=== PATIENT | female | born 1950 | race Caucasian/White ===

== ENCOUNTER 2018-03-02 10:35 | Outpatient (CLI) | payer MEDICARE, BC ==
[~2018-03-02 10:35] MED LIST: CELE200C PO; CHOL50004 PO; DULA0.75 INJ; DULO-31 PO; EZET10TA14 PO; FLUT1DIS4 INH; IVIG INJ; OMEP40CA37 PO; ROSU40TA PO; VALA500T PO
[2018-03-02 11:26] LABS: BASOPHILS % (AUTO) 0.4 % (0-1); EOSINOPHILS # (AUTO) 0.1 X10'3 (0-0.9); EOSINOPHILS % (AUTO) 2.3 % (0-6); HEMATOCRIT 42.3 % (35.0-45.0); HEMOGLOBIN 14.1 g/dl (12.0-16.0); LYMPHOCYTES % (AUTO) 21.1 % (21-51); MEAN CORPUSCULAR HEMOGLOBIN 28.5 PG (27.0-31.0); MEAN CORPUSCULAR HGB CONC 33.3 % (33.0-36.5); MEAN CORPUSCULAR VOLUME 85.7 FL (78-98); MEAN PLATELET VOLUME 10.9 FL (7.4-10.4); MONOCYTES # (AUTO) 0.3 X10'3 (0-0.9); MONOCYTES % (AUTO) 6.9 % (2-12); NEUTROPHILS # (AUTO) 3.4 X10'3 (1.8-7.7); NEUTROPHILS % (AUTO) 69.3 % (42-75); PLATELET COUNT 176 X10'3 (140-440); RED BLOOD COUNT 4.94 X10'6 (4.20-5.60); RED CELL DISTRIBUTION WIDTH 14.3 % (11.5-14.5); WHITE BLOOD COUNT 4.9 X10'3 (4.5-11.0)
[2018-03-02 11:35] LABS: PROTHROMBIN TIME 10.6 SECONDS (9.0-12.0)
[2018-03-02 11:41] LABS: ALANINE AMINOTRANSFERASE 61 U/L (12-78); ALBUMIN 3.9 G/DL (3.4-5.0); ALKALINE PHOSPHATASE 42 IU/L (46-116); ANION GAP 11 (8-16); ASPARTATE AMINO TRANSFERASE 36 U/L (10-37); BILIRUBIN,TOTAL 0.4 MG/DL (0.1-1.0); BLOOD UREA NITROGEN 13 MG/DL (7-18); BUN/CREATININE RATIO 14.3 (6.6-38.0); CALCIUM 9.5 MG/DL (8.5-10.1); CHLORIDE 101 MMOL/L (99-107); CREATININE 0.91 MG/DL (0.40-0.90); GLUCOSE 260 MG/DL (70-104); SODIUM 140 MMOL/L (135-145); TOTAL CARBON DIOXIDE 28.4 MMOL/L (24-32); TOTAL PROTEIN 7.7 G/DL (6.4-8.2); eGFR 62 ML/MIN
[2018-03-02 11:43] LABS: C-REACTIVE PROTEIN < 0.05 MG/DL (0.0-0.5)
[2018-03-02 11:48] LABS: HEMOGLOBIN A1C 8.3 % (4.5-6.2)
[2018-03-02 13:32] LABS: CLARITY,URINE CLOUDY (Clear); COLOR,URINE YELLOW (Yellow); GLUCOSE, URINE >=1000 mg/dl (Neg); KETONES,URINE NEGATIVE (Neg); LEUKOCYTE ESTERASE ,URINE TRACE (Neg); NITRITES, URINE NEGATIVE (Neg); OCCULT BLOOD,URINE SMALL (Neg); PROTEIN,URINE NEGATIVE (Neg); UROBILINOGEN,URINE 0.2 E.U/dL (0.2-1.0)
[2018-03-02 13:35] LABS: UA COLLECTION TYPE NON-SPECIFIED
[2018-03-02 13:37] LABS: WBC,URINE TNTC /HPF (0-4)
[2018-03-02 13:38] LABS: BACTERIA,URINE 3+ /HPF (Neg); MUCUS STRANDS FEW /LPF (Neg); SQUAMOUS EPITHELIAL CELL,UR MODERATE /LPF (FEW)
== END 2018-03-02 23:59 | disposition home or self-care (01) ==
LOC: LAB 10:35
PROVIDERS: ATTEND Specialist
DX: Z01.818 Encounter for other preprocedural examination (principal); Z51.81 Encounter for therapeutic drug level monitoring; N39.0 Urinary tract infection, site not specified; T84.53XA Infection and inflammatory reaction due to internal right knee prosthesis, initial encounter; E11.8 Type 2 diabetes mellitus with unspecified complications; I10 Essential (primary) hypertension; Z79.899 Other long term (current) drug therapy; Z96.642 Presence of left artificial hip joint; Z96.651 Presence of right artificial knee joint; Z87.891 Personal history of nicotine dependence
CPT/HCPCS: 36415; 80053; 81001; 83036; 85025; 85610; 85651; 86140; 87070

== ENCOUNTER 2018-03-15 07:41 | Inpatient (IN) | payer MEDICARE, BC ==
[2018-03-11 12:12] LABS: CLARITY,URINE CLOUDY (Clear); COLOR,URINE YELLOW (Yellow); GLUCOSE, URINE NEGATIVE (Neg); KETONES,URINE TRACE mg/dl (Neg); LEUKOCYTE ESTERASE ,URINE NEGATIVE (Neg); NITRITES, URINE NEGATIVE (Neg); OCCULT BLOOD,URINE NEGATIVE (Neg); PROTEIN,URINE NEGATIVE (Neg); UROBILINOGEN,URINE 0.2 E.U/dL (0.2-1.0)
[2018-03-11 12:21] LABS: UA COLLECTION TYPE NON-SPECIFIED
[2018-03-11 12:22] LABS: MUCUS STRANDS MODERATE /LPF (Neg); SQUAMOUS EPITHELIAL CELL,UR MODERATE /LPF (FEW)
[2018-03-11 12:23] LABS: BACTERIA,URINE FEW /HPF (Neg); RBC,URINE 0-2 /HPF (0-2); WBC,URINE 0-4 /HPF (0-4); YEAST MODERATE /HPF (NEGATIVE)
[~2018-03-15] VITALS: Ht 160 cm; Wt 103.9 kg
[2018-03-15] VITALS (17 sets, daily range): BP systolic 113–152; BP diastolic 59–119
[~2018-03-15 07:41] MED LIST changes: -CELE200C PO; -CHOL50004 PO; +Cefazolin 2GM/50ML dext iso,osmotic IVPB IV ONE; +DOCUMENT DATE & TIME OF BETA-BLOCKER PO ONE; +HYDR12.5 PO; +LEVA15HF4 INH; +LOSA25TA96 PO; +METO-395 PO; +OMEP20CA10 PO; -OMEP40CA37 PO; +ROSU20TA PO; -ROSU40TA PO; +TRAZ-219 PO; +albuterol 2.5 MG/3 ML nebule NEB ONE; +celeCOXIB 100mg capsule PO ONE; +famotidine 20mg tablet PO ONE; +gabapentin 300mg capsule PO ONE; +ringers solution, lacted 1,000 ML IV SCH; +tranexamic acid inj. 1,000 MG in normal saline 100ml IV soln 90 ML IV ONE; +vancomycin inj 1,500 MG in normal saline 300ml IV soln IV ONE
[2018-03-15] MEDS ORDERED: APIX5TAB3 PO (07:46)
[2018-03-15] MEDS ORDERED: meperidine/PF 25mg/ml syringe IV PRN ×3 (08:55)
[2018-03-15] MEDS ORDERED: proCHLORperazine 10 MG/2 ml inj IV PRN (08:55)
[2018-03-15] MEDS ORDERED: ringers solution, lacted 1,000 ML IV SCH (08:55)
[2018-03-15] MEDS ORDERED: ondansetron/PF 4mg/2ml inj IV PRN ×2 (08:55→12:10)
[2018-03-15] MEDS ORDERED: bacitracin inj 150,000 UNIT in sodium chloride irrig. sol 3,000 ML IR ONE (09:00)
[2018-03-15] MEDS ORDERED: ROPIVAcaine 0.5% (5mg/ml) 30ml vial ONE (09:17)
[2018-03-15] MEDS ORDERED: MIDAZolam 1mg/ml 10ml vial ONE (09:38)
[2018-03-15] MEDS ORDERED: fentaNYL/PF 50MCG/1 ML 2ML syringe ONE (09:39)
[2018-03-15] MEDS ORDERED: cloNIDine hcl/PF 100mcg/ml inj ONE (11:00)
[2018-03-15] MEDS: potassium cl 20mEq in 1/2 NS 1,000 ML IV SCH ×2 (12:09→17:38)
[2018-03-15] MEDS ORDERED: dextrose 50%-water 50ml dispensing syringe IV PRN ×2 (12:10)
[2018-03-15] MEDS ORDERED: dextrose ORAL solution 15 GM/59 ML bottle PO PRN ×2 (12:10)
[2018-03-15] MEDS ORDERED: MESSAGE TO PHARMACY PO ONE (12:10)
[2018-03-15] MEDS ORDERED: bisacodyl 10mg suppository rectal RC PRN (12:10)
[2018-03-15] MEDS ORDERED: diphenhydrAMINE 25mg capsule PO PRN (12:10)
[2018-03-15] MEDS ORDERED: acetaminophen 325mg tablet PO PRN (12:10)
[2018-03-15] MEDS ORDERED: traMADol 50MG tablet PO PRN (12:10)
[2018-03-15] MEDS ORDERED: glucagon, human recombinant 1mg kit SUBCUT PRN (12:10)
[2018-03-15] MEDS ORDERED: magnesium hydroxide 30ml (MOM) UD suspension PO PRN (12:10)
[2018-03-15] MEDS ORDERED: albuterol 2.5 MG/3 ML nebule NEB PRN (12:45)
[2018-03-15] MEDS: albuterol 2.5 MG/3 ML nebule NEB SCH ×2 (14:34→20:39)
[2018-03-15] MEDS: ceFAZolin 1GM/D5W- ADD-VANTAGE 50 ML IV SCH (17:37)
[2018-03-15] MEDS ORDERED: celeCOXIB 100mg capsule PO ONE ×2 (17:50→18:40)
[2018-03-15] MEDS: traMADol 50MG tablet PO PRN (18:43)
[2018-03-15] MEDS ORDERED: vancomycin/NS 1 GM ADD-VANTAGE 250 ML IV SCH (20:00)
[2018-03-15] MEDS ORDERED: non-formulary drug (Fluticasone/Salmeterol (Advair 250-50 Diskus) 1 PUFFS) INH SCH (20:00)
[2018-03-15] MEDS: budesonide 0.5mg/2ml UD nebule IH SCH (20:39)
[2018-03-15] MEDS: insulin glargine (Lantus) pen - multi-dose SQ SCH (20:52)
[2018-03-15] MEDS: sennosides 8.6mg tablet PO SCH (20:53)
[2018-03-15] MEDS: ascorbic acid 500mg tablet PO SCH (20:53)
[2018-03-15] MEDS: diphenhydrAMINE 25mg capsule PO PRN (20:54)
[2018-03-15] MEDS: ezetimibe 10mg tablet PO SCH (20:58)
[2018-03-16] MEDS: ceFAZolin 1GM/D5W- ADD-VANTAGE 50 ML IV SCH (00:06)
[2018-03-16] MEDS: traMADol 50MG tablet PO PRN ×4 (00:07→20:08)
[2018-03-16 02:00] VITALS: BP 146/70
[2018-03-16] MEDS: potassium cl 20mEq in 1/2 NS 1,000 ML IV SCH ×4 (04:26→20:11)
[2018-03-16 05:55] LABS: BASOPHILS % (AUTO) 0.2 % (0-1); EOSINOPHILS % (AUTO) 0.5 % (0-6); HEMATOCRIT 40.1 % (35.0-45.0); HEMOGLOBIN 13.5 g/dl (12.0-16.0); LYMPHOCYTES # (AUTO) 1.1 X10'3 (1.1-4.8); LYMPHOCYTES % (AUTO) 11.7 % (21-51); MEAN CORPUSCULAR HEMOGLOBIN 28.8 PG (27.0-31.0); MEAN CORPUSCULAR HGB CONC 33.7 % (33.0-36.5); MEAN CORPUSCULAR VOLUME 85.3 FL (78-98); MEAN PLATELET VOLUME 10.4 FL (7.4-10.4); MONOCYTES # (AUTO) 0.8 X10'3 (0-0.9); MONOCYTES % (AUTO) 8.8 % (2-12); NEUTROPHILS # (AUTO) 7.6 X10'3 (1.8-7.7); NEUTROPHILS % (AUTO) 78.8 % (42-75); PLATELET COUNT 184 X10'3 (140-440); RED CELL DISTRIBUTION WIDTH 14.3 % (11.5-14.5); WHITE BLOOD COUNT 9.6 X10'3 (4.5-11.0)
[2018-03-16 06:00] VITALS: BP 149/75
[2018-03-16 06:03] LABS: INR 1.4 INR; PROTHROMBIN TIME 14.1 SECONDS (9.0-12.0)
[2018-03-16 06:36] LABS: ALANINE AMINOTRANSFERASE 26 U/L (12-78); ALBUMIN/GLOBULIN RATIO 0.7 (1.1-1.5); ALKALINE PHOSPHATASE 48 IU/L (46-116); ANION GAP 8 (8-16); ASPARTATE AMINO TRANSFERASE 19 U/L (10-37); BILIRUBIN,TOTAL 0.3 MG/DL (0.1-1.0); BLOOD UREA NITROGEN 6 MG/DL (7-18); BUN/CREATININE RATIO 7.6 (6.6-38.0); CALCIUM 9.6 MG/DL (8.5-10.1); CHLORIDE 101 MMOL/L (99-107); CREATININE 0.79 MG/DL (0.40-0.90); GLUCOSE 194 MG/DL (70-104); POTASSIUM 4.1 MMOL/L (3.5-5.1); SODIUM 138 MMOL/L (135-145); TOTAL CARBON DIOXIDE 28.9 MMOL/L (24-32); TOTAL PROTEIN 7.1 G/DL (6.4-8.2); eGFR 73 ML/MIN
[2018-03-16] MEDS ORDERED: HYDROmorphone inj. 0.5 MG/0.5 ML DISP.SYRIN IV PRN (06:50)
[2018-03-16] MEDS: albuterol 2.5 MG/3 ML nebule NEB SCH ×4 (07:00→19:00)
[2018-03-16] MEDS: celeCOXIB 100mg capsule PO SCH ×2 (07:14→18:29)
[2018-03-16] MEDS ORDERED: HYDROmorphone 1 mg/ml syringe ONE (07:42)
[2018-03-16] MEDS: losartan 50mg tablet PO SCH (07:47)
[2018-03-16] MEDS: pantoprazole 40mg Tablet.DR PO SCH (07:47)
[2018-03-16] MEDS: HYDROchlorothiazide 12.5mg capsule PO SCH (07:48)
[2018-03-16] MEDS: metoprolol succinate 25mg (24-HOUR) SR. Tablet PO SCH (07:48)
[2018-03-16] MEDS: multivitamins, therapeutics tablet PO SCH (07:48)
[2018-03-16] MEDS: duloxetine 30mg CAPSULE.DR PO SCH (07:48)
[2018-03-16] MEDS: ascorbic acid 500mg tablet PO SCH ×2 (07:48→20:07)
[2018-03-16] MEDS: atorvastatin 10mg tablet PO SCH (07:48)
[2018-03-16] MEDS: HYDROmorphone 1 mg/ml syringe IV PRN ×3 (07:53→22:07)
[2018-03-16] MEDS: budesonide 0.5mg/2ml UD nebule IH SCH ×2 (08:00→20:00)
[2018-03-16] MEDS: insulin Lispro (HumaLOG) vial - multi-dose SQ SCH ×3 (08:26→18:28)
[2018-03-16] MEDS ORDERED: HYDROmorphone 1 mg/ml syringe IV PRN (09:15)
[2018-03-16 10:00] VITALS: BP 138/59
[2018-03-16] MEDS ORDERED: warfarin 5mg tablet PO ONE (10:00)
[2018-03-16] MEDS ORDERED: NUT.TX.GLUC.INTOLER,LAC-FR,SOY (GLUCERNA) 237 ML PO SCH (12:30)
[2018-03-16 14:00] VITALS: BP 118/50
[2018-03-16 18:00] VITALS: BP 131/60
[2018-03-16] MEDS ORDERED: celeCOXIB 100mg capsule PO SCH (20:00)
[2018-03-16] MEDS: ezetimibe 10mg tablet PO SCH (20:07)
[2018-03-16] MEDS: sennosides 8.6mg tablet PO SCH (20:07)
[2018-03-16] MEDS: insulin glargine (Lantus) pen - multi-dose SQ SCH (20:10)
[2018-03-16] MEDS: diphenhydrAMINE 25mg capsule PO PRN (20:11)
[2018-03-17] MEDS: traMADol 50MG tablet PO PRN ×5 (00:36→20:07)
[2018-03-17] MEDS: HYDROmorphone 1 mg/ml syringe IV PRN (03:26)
[2018-03-17] MEDS: potassium cl 20mEq in 1/2 NS 1,000 ML IV SCH (04:09)
[2018-03-17 05:00] VITALS: BP 162/76
[2018-03-17 05:27] LABS: BASOPHILS % (AUTO) 0.1 % (0-1); EOSINOPHILS # (AUTO) 0.2 X10'3 (0-0.9); EOSINOPHILS % (AUTO) 1.7 % (0-6); HEMATOCRIT 39.5 % (35.0-45.0); HEMOGLOBIN 13.2 g/dl (12.0-16.0); LYMPHOCYTES # (AUTO) 1.1 X10'3 (1.1-4.8); LYMPHOCYTES % (AUTO) 12.1 % (21-51); MEAN CORPUSCULAR HEMOGLOBIN 28.4 PG (27.0-31.0); MEAN CORPUSCULAR HGB CONC 33.3 % (33.0-36.5); MEAN CORPUSCULAR VOLUME 85.3 FL (78-98); MEAN PLATELET VOLUME 10.6 FL (7.4-10.4); MONOCYTES % (AUTO) 10.6 % (2-12); NEUTROPHILS % (AUTO) 75.5 % (42-75); PLATELET COUNT 175 X10'3 (140-440); RED BLOOD COUNT 4.64 X10'6 (4.20-5.60); WHITE BLOOD COUNT 9.3 X10'3 (4.5-11.0)
[2018-03-17 05:36] LABS: INR 1.2 INR; PROTHROMBIN TIME 12.1 SECONDS (9.0-12.0)
[2018-03-17 06:07] LABS: ALANINE AMINOTRANSFERASE 23 U/L (12-78); ALBUMIN 2.9 G/DL (3.4-5.0); ALBUMIN/GLOBULIN RATIO 0.6 (1.1-1.5); ALKALINE PHOSPHATASE 56 IU/L (46-116); ANION GAP 8 (8-16); ASPARTATE AMINO TRANSFERASE 19 U/L (10-37); BILIRUBIN,TOTAL 0.4 MG/DL (0.1-1.0); BLOOD UREA NITROGEN 8 MG/DL (7-18); BUN/CREATININE RATIO 11.3 (6.6-38.0); CALCIUM 9.8 MG/DL (8.5-10.1); CHLORIDE 100 MMOL/L (99-107); CREATININE 0.71 MG/DL (0.40-0.90); GLUCOSE 190 MG/DL (70-104); POTASSIUM 4.9 MMOL/L (3.5-5.1); SODIUM 135 MMOL/L (135-145); TOTAL CARBON DIOXIDE 27.5 MMOL/L (24-32); TOTAL PROTEIN 7.4 G/DL (6.4-8.2); eGFR 82 ML/MIN
[2018-03-17] MEDS ORDERED: fluconazole 150mg tablet PO ONE (06:45)
[2018-03-17] MEDS: pantoprazole 40mg Tablet.DR PO SCH (07:30)
[2018-03-17] MEDS: nystatin 15 GM powder TP SCH ×3 (08:00→21:06)
[2018-03-17] MEDS: albuterol 2.5 MG/3 ML nebule NEB SCH ×4 (08:28→19:00)
[2018-03-17] MEDS: budesonide 0.5mg/2ml UD nebule IH SCH ×2 (08:29→19:57)
[2018-03-17] MEDS: duloxetine 30mg CAPSULE.DR PO SCH (09:19)
[2018-03-17] MEDS: losartan 50mg tablet PO SCH (09:19)
[2018-03-17] MEDS: multivitamins, therapeutics tablet PO SCH (09:22)
[2018-03-17] MEDS: metoprolol succinate 25mg (24-HOUR) SR. Tablet PO SCH (09:22)
[2018-03-17] MEDS: atorvastatin 10mg tablet PO SCH (09:22)
[2018-03-17] MEDS: HYDROchlorothiazide 12.5mg capsule PO SCH (09:22)
[2018-03-17] MEDS: insulin Lispro (HumaLOG) vial - multi-dose SQ SCH ×3 (09:22→19:05)
[2018-03-17] MEDS: ascorbic acid 500mg tablet PO SCH ×2 (09:23→20:06)
[2018-03-17] MEDS: celeCOXIB 100mg capsule PO SCH ×2 (09:32→19:04)
[2018-03-17 10:00] VITALS: BP 115/70
[2018-03-17] MEDS ORDERED: warfarin 10mg tablet PO ONE (10:00)
[2018-03-17] MEDS ORDERED: acetaminophen 325mg tablet PO PRN (12:10)
[2018-03-17 14:00] VITALS: BP 133/85
[2018-03-17 18:00] VITALS: BP 126/55
[2018-03-17] MEDS: sennosides 8.6mg tablet PO SCH (20:06)
[2018-03-17] MEDS: ezetimibe 10mg tablet PO SCH (20:06)
[2018-03-17] MEDS ORDERED: BUDESONIDE 0.25 MG/2 ML AMPUL.NEB IH SCH (20:44)
[2018-03-17] MEDS: insulin glargine (Lantus) pen - multi-dose SQ SCH (21:09)
[2018-03-17 22:00] VITALS: BP 148/75
[2018-03-18] MEDS: traMADol 50MG tablet PO PRN ×4 (00:20→12:07)
[2018-03-18] MEDS: celeCOXIB 100mg capsule PO SCH (05:42)
[2018-03-18 06:00] VITALS: BP 119/69
[2018-03-18 06:12] LABS: BASOPHILS % (AUTO) 0.4 % (0-1); EOSINOPHILS # (AUTO) 0.3 X10'3 (0-0.9); EOSINOPHILS % (AUTO) 4.2 % (0-6); HEMATOCRIT 38.1 % (35.0-45.0); HEMOGLOBIN 12.7 g/dl (12.0-16.0); LYMPHOCYTES # (AUTO) 1.6 X10'3 (1.1-4.8); LYMPHOCYTES % (AUTO) 21.1 % (21-51); MEAN CORPUSCULAR HEMOGLOBIN 28.6 PG (27.0-31.0); MEAN CORPUSCULAR HGB CONC 33.4 % (33.0-36.5); MEAN CORPUSCULAR VOLUME 85.6 FL (78-98); MONOCYTES # (AUTO) 0.9 X10'3 (0-0.9); MONOCYTES % (AUTO) 11.8 % (2-12); NEUTROPHILS # (AUTO) 4.7 X10'3 (1.8-7.7); NEUTROPHILS % (AUTO) 62.5 % (42-75); PLATELET COUNT 188 X10'3 (140-440); RED BLOOD COUNT 4.45 X10'6 (4.20-5.60); RED CELL DISTRIBUTION WIDTH 14.1 % (11.5-14.5); WHITE BLOOD COUNT 7.5 X10'3 (4.5-11.0)
[2018-03-18 06:17] LABS: INR 1.6 INR; PROTHROMBIN TIME 16.6 SECONDS (9.0-12.0)
[2018-03-18 06:39] LABS: ALANINE AMINOTRANSFERASE 27 U/L (12-78); ALBUMIN 2.7 G/DL (3.4-5.0); ALBUMIN/GLOBULIN RATIO 0.6 (1.1-1.5); ALKALINE PHOSPHATASE 57 IU/L (46-116); ANION GAP 8 (8-16); ASPARTATE AMINO TRANSFERASE 22 U/L (10-37); BILIRUBIN,TOTAL 0.4 MG/DL (0.1-1.0); BLOOD UREA NITROGEN 14 MG/DL (7-18); BUN/CREATININE RATIO 16.3 (6.6-38.0); CALCIUM 9.6 MG/DL (8.5-10.1); CHLORIDE 99 MMOL/L (99-107); CREATININE 0.86 MG/DL (0.40-0.90); GLUCOSE 130 MG/DL (70-104); POTASSIUM 4.4 MMOL/L (3.5-5.1); SODIUM 135 MMOL/L (135-145); TOTAL CARBON DIOXIDE 27.8 MMOL/L (24-32); TOTAL PROTEIN 7.2 G/DL (6.4-8.2); eGFR 66 ML/MIN
[2018-03-18] MEDS: albuterol 2.5 MG/3 ML nebule NEB SCH ×2 (07:24→10:58)
[2018-03-18] MEDS: losartan 50mg tablet PO SCH (07:59)
[2018-03-18] MEDS: duloxetine 30mg CAPSULE.DR PO SCH (07:59)
[2018-03-18] MEDS: HYDROchlorothiazide 12.5mg capsule PO SCH (07:59)
[2018-03-18] MEDS: pantoprazole 40mg Tablet.DR PO SCH (07:59)
[2018-03-18] MEDS: atorvastatin 10mg tablet PO SCH (07:59)
[2018-03-18] MEDS: ascorbic acid 500mg tablet PO SCH (08:00)
[2018-03-18] MEDS: multivitamins, therapeutics tablet PO SCH (08:00)
[2018-03-18] MEDS: metoprolol succinate 25mg (24-HOUR) SR. Tablet PO SCH (08:00)
[2018-03-18] MEDS: nystatin 15 GM powder TP SCH ×2 (08:07→13:00)
[2018-03-18] MEDS ORDERED: CELE100C98 PO (09:11)
[2018-03-18] MEDS ORDERED: warfarin 5mg tablet PO ONE (10:00)
[2018-03-18] MEDS: insulin Lispro (HumaLOG) vial - multi-dose SQ SCH (13:20)
[2018-03-22] MEDS ORDERED: DULAGLUTIDE SQ SCH (08:00)
== END 2018-03-18 13:25 | disposition home health service (06) | DRG 470 ==
LOC: PAS IN 07:41 → EDSTATUS 10:15 → ORTHO 4S 13:15
PROVIDERS: ADMIT Specialist; ATTEND Specialist
PROC: 3E0T3BZ Introduction of Anesthetic Agent into Peripheral Nerves and Plexi, Percutaneous Approach (ICD-10-PCS; 2018-03-15)
PROC: 5A09357 Assistance with Respiratory Ventilation, Less than 24 Consecutive Hours, Continuous Positive Airway Pressure (ICD-10-PCS; 2018-03-15)
PROC: 0SRD0J9 Replacement of Left Knee Joint with Synthetic Substitute, Cemented, Open Approach (ICD-10-PCS; principal; 2018-03-15 09:30)
DX: M17.12 Unilateral primary osteoarthritis, left knee (principal); Z68.41 Body mass index [BMI] 40.0-44.9, adult; E11.9 Type 2 diabetes mellitus without complications; E66.01 Morbid (severe) obesity due to excess calories; E78.5 Hyperlipidemia, unspecified; G47.30 Sleep apnea, unspecified; B37.3 Candidiasis of vulva and vagina; I10 Essential (primary) hypertension; F32.9 Major depressive disorder, single episode, unspecified; F41.9 Anxiety disorder, unspecified; I48.2 Chronic atrial fibrillation; J45.909 Unspecified asthma, uncomplicated; K21.9 Gastro-esophageal reflux disease without esophagitis; M65.88 Other synovitis and tenosynovitis, other site; M79.7 Fibromyalgia; Z96.651 Presence of right artificial knee joint; Z90.710 Acquired absence of both cervix and uterus; Z79.899 Other long term (current) drug therapy; Z88.5 Allergy status to narcotic agent; Z88.8 Allergy status to other drugs, medicaments and biological substances; Z86.14 Personal history of Methicillin resistant Staphylococcus aureus infection; Z87.891 Personal history of nicotine dependence
CPT/HCPCS: 36415; 73560; 80053; 81001; 82948; 83036; 85025; 85610; 94640; 94760; 97110; 97116; 97162; 97530; A6258; A6449; A6455; A7000; C1713; C1758; C1776; J0690; J0735; J1170; J1815; J2250; J2795; J3010; J3370; J7030; J7120; J7626; Q0163

== ENCOUNTER 2025-05-15 05:27 | Observation (INO) | payer MEDICARE, BC ==
[2025-05-02 13:39] LABS: LEUKOCYTE ESTERASE ,URINE NEGATIVE (Neg); NITRITES, URINE NEGATIVE (Neg); OCCULT BLOOD,URINE NEGATIVE (Neg)
[2025-05-02 13:50] LABS: MEAN PLATELET VOLUME 10.1 FL (7.4-10.4); PRE OP HEMATOCRIT 41.8 % (35.0-45.0); PRE OP HEMOGLOBIN 13.7 g/dL (12.0-16.0); PRE OP PLATELET COUNT 190 X10'3 (140-440); PRE OP WHITE BLOOD COUNT 5.6 10'3 (4.8-10.8); RED CELL DISTRIBUTION WIDTH 15.6 % (11.5-14.5); UA COLLECTION TYPE CLN CATCH MIDSTREAM
[2025-05-02 13:59] LABS: PRE OP INR 1.1 INR; PRE OP PARTIAL THROMB. TIME 29.0 SECONDS (22-32); PRE OP PROTIME 11.1 SECONDS (9.0-12.0)
[2025-05-02 14:01] LABS: CREATININE 0.60 MG/DL (0.40-0.90); PRE OP ALT 34 U/L (30-65); PRE OP ANION GAP 9 (8-16); PRE OP AST 23 U/L (10-37); PRE OP BILIRUB, TOTAL 0.4 MG/DL (0.0-1.0); PRE OP GLUCOSE 116 MG/DL (70-104); PRE OP POTASSIUM 3.8 MMOL/L (3.4-5.1); PRE OP SODIUM 142 MMOL/L (135-145); TOTAL CARBON DIOXIDE 31.5 MMOL/L (24-32); eGFR > 90 ML/MIN
--- NOTE | 2025-05-02 14:42 | RADIOLOGY REPORT ---
DI CHEST,TWO VIEWS CLINICAL HISTORY: Pain COMPARISON: None TECHNIQUE: Frontal and lateral view of the chest was obtained FINDINGS: Lines and Tubes: Right chest port tip projects over the superior vena cava. Lungs: No focal consolidation. Pleura: No effusion. No pneumothorax. Cardiomediastinal contours: Unremarkable. Atherosclerotic vascular calcifications of the thoracic aorta are noted. Bones: No acute osseous abnormality. IMPRESSION: No acute cardiopulmonary disease.
[~2025-05-15] VITALS: Ht 160 cm; Wt 94.6 kg
[2025-05-15] VITALS (25 sets, daily range): BP systolic 100–165; BP diastolic 40–95; PULSE 63–79; RESP 11–19; TEMP 97.7–98.2; O2SAT 93–98
[~2025-05-15 05:27] MED LIST changes: +ACET-2971 PO; +ALPR0.252 PO; +APIX5TAB3 PO; +AZEL137S4 BOTHNARES; -Cefazolin 2GM/50ML dext iso,osmotic IVPB IV ONE; +DIPH25CA52 PO; -DOCUMENT DATE & TIME OF BETA-BLOCKER PO ONE; -DULA0.75 INJ; -DULO-31 PO; -EZET10TA14 PO; +FLUO20TA28 PO; +FLUT1BLS4 INH; -FLUT1DIS4 INH; +GABA-1405 PO; -HYDR12.5 PO; +HYDR25TA4 PO; -IVIG INJ; -LEVA15HF4 INH; +LEVA15HF6 INH; +LOSA100T58 PO; -LOSA25TA96 PO; +OLAN1CAP16 PO; -OMEP20CA10 PO; +OMEP40CA21 PO; -ROSU20TA PO; +ROSU20TA2 PO; +SEMA1PEN3 SUBCUT; -TRAZ-219 PO; -VALA500T PO; +VALA500T41 PO; -albuterol 2.5 MG/3 ML nebule NEB ONE; -celeCOXIB 100mg capsule PO ONE; -famotidine 20mg tablet PO ONE; -gabapentin 300mg capsule PO ONE; -ringers solution, lacted 1,000 ML IV SCH; -tranexamic acid inj. 1,000 MG in normal saline 100ml IV soln 90 ML IV ONE; -vancomycin inj 1,500 MG in normal saline 300ml IV soln IV ONE
[2025-05-15] MEDS: DOCUMENT DATE & TIME OF BETA-BLOCKER PO ONE (06:18)
[2025-05-15] MEDS: ceFAZolin 2gm/dext,iso 50mL 50 ML IV ONE (06:18)
[2025-05-15] MEDS: ringers solution, lacted 1,000 ML IV SCH ×2 (06:18→09:05)
[2025-05-15] MEDS: tranexamic acid 1gm/0.7% sal. 100 ML IV ONE (06:18)
[2025-05-15] MEDS ORDERED: gelatin sponge, absorbable (Gelfoam 100) sponge TP ONE (06:43)
[2025-05-15] MEDS ORDERED: vancomycin 1,000mg inj ONE (06:43)
[2025-05-15] MEDS ORDERED: ondansetron/PF 4mg/2ml inj IV PRN ×2 (07:10→09:05)
[2025-05-15] MEDS: potassium cl 20mEq in 1/2 NS 1,000 ML IV SCH (07:10)
[2025-05-15] MEDS ORDERED: bisacodyl 10mg suppository rectal RC PRN (07:10)
[2025-05-15] MEDS ORDERED: magnesium hydroxide 30ml (MOM) UD suspension PO PRN (07:10)
[2025-05-15] MEDS ORDERED: cloNIDine hcl/PF 100mcg/ml inj ONE (07:18)
[2025-05-15] MEDS ORDERED: midazolam 1 mg/ML 2ml injection ONE (07:20)
[2025-05-15] MEDS ORDERED: fentaNYL/PF 50MCG/1 ML 2ML syringe ONE (07:20)
[2025-05-15] MEDS ORDERED: rocuronium 10mg/ml inj IV ONE (07:21)
[2025-05-15] MEDS ORDERED: propofol inj 20 ML IV ONE (07:21)
[2025-05-15] MEDS ORDERED: ROPIVAcaine 0.5% (5mg/ml) 30ml vial ONE (09:01)
[2025-05-15] MEDS ORDERED: ondansetron/PF 4mg/2ml inj ONE (09:02)
[2025-05-15] MEDS ORDERED: labetalol 20mg/4ml (5mg/ml) syringe IV PRN (09:05)
[2025-05-15] MEDS ORDERED: fentaNYL/PF 50MCG/1 ML 2ML syringe IV PRN ×2 (09:05)
[2025-05-15] MEDS ORDERED: HYDROmorphone/PF 0.2 MG/ML SYRINGE IV PRN ×2 (09:05)
[2025-05-15] MEDS ORDERED: hydrALAZINE 20mg/ml inj. IV PRN (09:05)
--- NOTE | 2025-05-15 10:16 | OPERATIVE REPORT ---
Operative Report Providers to ~ Date of Procedure: May 15, 2025 Pre-Operative Diagnosis: L shoulder OA Post-Operative Diagnosis SAME as PRE-Op Procedure Performed Left reverse total shoulder arthroplasty and biceps tenodesis Surgeon: Duane Giordano MD End [facility] Twisting Department Dr. Ortega Anesthesiologist: Danis Tang Type of Anesthesia: General, Regional Findings: Severe left shoulder arthrosis. Intact rotator cuff except for high-grade partial tear of the supraspinatus. Complications None Prosthetics\Implants used: Shoulder innovations size eight inset 70 humeral component with a +0 humeral tray and +0 humeral liner. A 10 degree augmented base plate was used along with a 33 diameter, plus six lateralized glenosphere Estimated Blood Loss: 100 cc Specimen Removed: None Description of Procedure: Patient is brought to the operating. Placed in a supine position. Preoperative antibiotics of 2 g of Ancef were given. 1 g of TXA. General plus regional anesthesia was performed including a left shoulder interscalene block. Patient was then positioned in a modified beach chair position. Bony prominences were well padded. Bilateral lower extremity SCDs were placed. The left upper extremity was prepped and draped in the usual sterile fashion. A time-out procedure was performed as per routine identifying the patient, site to be operated on, and procedure to be performed. Dr. Ortega assisted on this case. Dr. Ortega is familiar with my setup which he lps facilitate preparation. He is familiar with my proximal humeral exposure which helps facilitate that for proper instrumentation of the humerus. Most importantly, he understands how to manage retractors around the glenoid giving me excellent glenoid exposure. Lastly, he is familiar with my suturing technique for my subscapularis repair which helps facilitate that at the end of surgery. I began with a left shoulder deltopectoral interval. Cephalic vein was identified and taken laterally with the deltoid. I developed the deltopectoral interval and subdeltoid space. Retractors were placed for good exposure. I then identified the pectoralis major insertion and long head of the biceps. I tenodesed the long head of the biceps to the pectoralis major insertion with two locking 2. FiberWire sutures. I then followed the biceps tendon up through the bicipital groove into the rotator interval. I then freed it and removed the proximal portion of the biceps. I then placed tag sutures in the subscapularis and a subscapularis peel was performed. Careful dissection along the medial calcar released the inferior capsule. I also released a small portion of the anterior supraspinatus. I was then able to dislocate the proximal humerus into the deltopectoral interval easily. Large marginal osteophytes were removed with a rongeur until I could identify the capsular reflexion. I then used a high-speed oscillating saw and did my humeral head osteotomy. Patient had a proximal humeral cyst anteriorly superiorly. I then used canal sounders up to a size eight. Preoperative planning showed that I should not put a implant bigger than a size eight in so I started with a size four which was too loose. I then broached to a size six. Also too loose. I then finally went to a size eight which had fairly good Press-Fit. I left that broach in place. I reamed for a humeral tray and then placed my cut protector to move onto the glenoid. A 360 degree soft tissue release was performed around the glenoid. I removed any residual biceps anchor and labrum. I was then able to place my retractors directly on bone for excellent visualization. Care was taken anteriorly to protect neurovascular structures and inferiorly to protect the axillary nerve. Once I had excellent visualization of the glenoid, I then referenced my 3D preoperative plan. Using that plan, I used a 10 degree pin guide with the maximum correction at about the 2:30 position. I placed a bicortical guide pin and checked it under fluoroscopy. I was happy with the position. I then used a 10 degree augmented Reamer with the maximum correction at about the 2:30 position. I reamed for a good pocket. I then drilled for my center boss. I then implanted a 10 degree augmented base plate with the maximum correction at a bout the 2:30 position. I impacted it, tested it is Press-Fit, and then we impacted it. It had excellent Press-Fit. I then placed a center compression screw with excellent purchase. I placed four peripheral locking screws. The base plate was very stable. I then used a 33 diameter peripheral Reamer to remove bone to allow the glenosphere to engaged. I then selected a 33 diameter, plus six lateralized glenosphere based off of my 3D preoperative plan. I placed it by impacting the taper, testing the taper, and then we impacting and definitively setting the taper. I then moved back to the humerus. I placed a trial +0 tray and +0 liner. I reduced the shoulder with a excellent positive reduction feel. I could not dislocate it with a lateral Shuck carlton uver. Stable range of motion was internal rotation to the belly, external rotation to about 80, easy overhead motion. Abduction external rotation to 100 and abduction internal rotation to about 40. I was happy with the overall construct. I dislocated it and removed the components. I irrigated the shoulder. I then put four drill holes adjacent to the lesser tuberosity and p assed 1.3 mm Suture tape. This would be for my later subscapularis repair. Definitive implant was opened on the back table which was a size eight inset 70 humeral component with a +0 humeral tray and +0 humeral liner. I impacted in standard fashion in it sat down nicely. It was very stable with axial and rotational stress. I then reduced the shoulder with the same positive reduction feel and stability that I noted previously. Final fluoroscopy images were taken and I was very happy with the construct. Those images were saved. I then irrigated the shoulder thoroughly with IrriSept and then 2-1/2 L of pulse lavage irrigation. I then reduced the subscapularis and did a double row subscapularis repair with my previously placed suture. I closed the most lateral portion of the rotator interval with 2. FiberWire suture. I did an axillary nerve tug test and the tug test was intact. The subscapularis repair was solid. So at this point, I irrigated the shoulder with 500 cc of pulse lavage. Adequate hemost asis was obtained. I placed 1 g of vancomycin powder adjacent to the implant. The deltopectoral interval was closed with 1#1 Stratafix suture. Deep layers were closed with 0 Stratafix suture, subcutaneous layers were closed with 2-0 Stratafix suture and skin was closed with 3-0 Stratafix suture. Final sponge and needle counts were correct. Wound was sealed with a Prineo dressing. Sterile dressings were applied. Arm was protected in an abduction pillow and sling. Patient was thereafter recovered without complications and sent to recovery in good condition. Counts repoted as correct: Yes X-Ray findings: No Foreign body DUANE GIORDANO MD May 15, 2025 10:16
[2025-05-15] MEDS: acetaminophen 1,000mg/100ml IV 100 ML IV PRN (10:25)
[2025-05-15] MEDS ORDERED: ALPRAZolam 0.25mg tablet PO PRN (10:30)
--- NOTE | 2025-05-15 11:11 | RADIOLOGY REPORT ---
EXAM: DI SHOULDER, COMPLETE (MIN 2 VWS) CLINICAL INDICATION: post op TECHNIQUE: DI SHOULDER, COMPLETE (MIN 2 VWS) Comparison: None FINDINGS/IMPRESSION: Left total shoulder arthroplasty. Right chest port partially visualized. No acute fracture
[2025-05-15] MEDS ORDERED: albuterol 2.5 MG/3 ML nebule NEB SCH (15:00)
[2025-05-15] MEDS: ceFAZolin 2gm/dext,iso 50mL 50 ML IV SCH (17:59)
[2025-05-15] MEDS: HYDROcodone/acetaminophen 5mg/325mg tablet PO PRN (17:59)
[2025-05-16 06:00] VITALS: BP 120/47; PULSE 71; RESP 13; TEMP 97.9; O2SAT 97
[2025-05-16 06:13] LABS: MEAN PLATELET VOLUME 10.6 FL (7.4-10.4); RED CELL DISTRIBUTION WIDTH 15.2 % (11.5-14.5)
[2025-05-16 06:36] LABS: CREATININE 0.74 MG/DL (0.40-0.90); TOTAL CARBON DIOXIDE 29.2 MMOL/L (24-32); eCRCL 55 ML/MIN; eGFR 77 ML/MIN
[2025-05-16] MEDS: HYDROcodone/acetaminophen 5mg/325mg tablet PO PRN (06:53)
--- NOTE | 2025-05-16 07:50 | PROGRESS NOTE ---
Progress Note Orthopedic Ortho Post Op Day #: 1 Follow Up Progress Note Operative day 1. Status post left reverse total shoulder arthroplasty and biceps tenodesis Central Line/PICC still needed: N\A Mustafa Catheter still needed?: N\A Subjective Patient has complaints of pain, controlled on her current medication regimen. Otherwise no overnight issues. Objective Vital Signs Date Time Temp Pulse Resp B/P (MAP) Pulse Ox O2 Delivery O2 Flow Rate FiO2 05/16/25 06:53 16 05/16/25 03:35 Nasal Cannula 2.0 05/15/25 22:00 98.0 73 113/60 (77 97 Result Diagram: 05/16/25 0500 05/16/25 0500 Alert and Oreinted x4, Appropriate, Vital signs are stable, In no acute distress Objective Examination of her left shoulder shows intact dressings. Clean and dry. No strike through. Axillary nerve is intact to light touch. 2+ radial pulse. Her median, radial, and ulnar nerve motor functions are intact. She has intact sensation except for her index finger and thumb which still are slightly numb. Sling is in place. Lab Results comments Postoperative day 1. Labs were reviewed. Labs were within acceptable limits. Other Results Postoperative x-rays were reviewed. No visible complications. No fractures or dislocations. Implant alignment looks good. Problem/Assessment/Plan Assessment\Plan: Doing Well, Anticipate disch to home Postoperative day 1. Status post left reverse total shoulder arthroplasty and biceps tenodesis Plan: Patient is doing well. Recovering as expected. She will be seen by Physical therapy for safe discharge as well as to be taught pendulums and passive range of motion only. No shoulder external rotation past neutral. Strict nonweightbearing. Patient should have finished her IV antibiotics. Everything else looks good in terms of vital signs and labs. Patient should be discharged home later today with the following instructions: 1. No active left shoulder range of motion. Patient is allowed pendulums and passive range of motion only. 2. No shoulder external rotation past neutral 3. Patient must move her elbow, fingers, and hand to prevent stiffness 4. Patient must use the sling at all times otherwise. 5. Patient may remove her dressing tomorrow. If it is clean, dry, and not draining, she may shower. If there is any drainage, she must notify Dr. Giordano 6. Patient should resume her normal medications 7. Patient may restart her Eliquis the evening of 05/16/2025 8. Patient should start outpatient therapy as ordered 9. Patient should follow up with Dr. Giordano in two weeks All of the above was reviewed with the patient. All questions were answered. REGINA GIORDANO MD May 16, 2025 07:50
--- NOTE | 2025-05-16 07:53 | DISCHARGE SUMMARY ---
Discharge Summary Providers to ~ Discharge Summary Admission Diagnosis: L shoulder OA Hospital Course DATE OF ADMISSION: 05/15/2025 DATE OF DISCHARGE: 05/16/2025 Discharge Diagnosis\Comment: Left shoulder osteoarthritis Operations\Procedures: On 05/15/2025, patient underwent a left reverse shoulder arthroplasty and biceps tenodesis without complications. Consultants: None Complications: None Condition on DC: Stable Discharge Summary: Patient underwent surgery on 05/15/2025 for a left reverse total shoulder arthroplasty and biceps tenodesis. She was admitted for routine postoperative care including IV antibiotics. Pain was reasonably controlled. Vital signs are stable. Postoperative labs look reasonable. Postoperative x-rays look good. Patient will be seen by Physical therapy to be cleared for safe discharge home as well as to be taught pendulums and passive range of motion. No shoulder external rotation past neutral. Patient should be discharged home on 05/16/2025 with the following instructions: 1. No active left shoulder range of motion. Patient is allowed pendulums and passive range of motion only. 2. No shoulder external rotation past neutral 3. Patient must move her elbow, fingers, and hand to prevent stiffness 4. Patient must use the sling at all times otherwise. 5. Patient may remove her dressing tomorrow. If it is clean, dry, and not draining, she may shower. If there is any drainage, she must notify Dr. Giordano 6. Patient should resume her normal medications 7. Patient may restart her Eliquis the evening of 05/16/2025 8. Patient should start outpatient therapy as ordered 9. Patient should follow up with Dr. Giordano in two weeks *Problems/Diagnosis: (1) Primary osteoarthritis, left shoulder Status: Resolved Total Time Spent on D/C: Up to 30 Minutes REGINA GIORDANO MD May 16, 2025 07:53
[2025-05-16] MEDS: [UNRECOGNIZED DRUG - OTHER] PO SCH (08:00)
[2025-05-16] MEDS: metoprolol succinate 25mg (24-HOUR) SR. Tablet PO SCH (08:00)
[2025-05-16] MEDS: azelastine Nasal Spray bottle NS SCH (08:00)
[2025-05-16] MEDS: Fluticasone/Umeclidin/Vilanter (Trelegy Ellipta 100-62.5-25) INHALER PO SCH (08:00)
[2025-05-16] MEDS: pantoprazole 40mg Tablet.DR PO SCH (09:02)
[2025-05-16 11:00] VITALS: BP 113/53; PULSE 65; RESP 18; TEMP 98.7; O2SAT 95
[2025-05-16] MEDS ORDERED: morphine 4 MG/ML inj SYRINge IV PRN (13:55)
[2025-05-16] MEDS: HYDROcodone/acetaminophen 10/325mg tab PO PRN (15:50)
[2025-05-16 18:00] VITALS: BP 134/60; PULSE 82; RESP 19; TEMP 100.2; O2SAT 92
[2025-05-16 20:20] VITALS: RESP 18
[2025-05-16 22:00] VITALS: BP 137/48; PULSE 81; RESP 15; TEMP 99.7; O2SAT 94
[2025-05-17 04:08] LABS: MEAN PLATELET VOLUME 9.9 FL (7.4-10.4); RED CELL DISTRIBUTION WIDTH 14.8 % (11.5-14.5)
[2025-05-17 04:39] LABS: CREATININE 0.59 MG/DL (0.40-0.90); TOTAL CARBON DIOXIDE 27.9 MMOL/L (24-32); eCRCL 69 ML/MIN; eGFR > 90 ML/MIN
[2025-05-17 06:00] VITALS: BP 128/59; PULSE 71; RESP 16; TEMP 98; O2SAT 93
--- NOTE | 2025-05-17 07:11 | PROGRESS NOTE ---
Progress Note Orthopedic Ortho Post Op Day #: 2 Follow Up Progress Note Postoperative day 2. Status post left reverse total shoulder arthroplasty Central Line/PICC still needed: N\A Mustafa Catheter still needed?: N\A Subjective States her pain is improved today. She feels comfortable enough to go home. Objective Vital Signs Date Time Temp Pulse Resp B/P (MAP) Pulse Ox O2 Delivery O2 Flow Rate FiO2 05/17/25 01:00 Nasal Cannula 2.0 05/16/25 22:00 99.7 81 15 137/48 (77 94 Result Diagram: 05/17/2533905/17/25 034 Alert and Oreinted x4, Appropriate, Vital signs are stable, In no acute distress Objective Examination of her left shoulder shows intact dressings. Clean and dry. No strike through. Axillary nerve is intact to light touch. 2+ radial pulse. Her median, radial, and ulnar nerve motor functions are intact. She has intact sensation throughout her left hand. Sling is in place. Lab Results comments Labs were acceptable for discharge Problem/Assessment/Plan Problems/Diagnosis: (1) Primary osteoarthritis, left shoulder Assessment\Plan: Doing Well, Anticipate disch to home Patient is doing much better today in terms of her pain. She feels comfortable to go home. My note from yesterday details her restrictions that were discussed. I reviewed those with the patient. She understands. Printed instructions we will go home with her. Discharge orders are placed. Patient will see me in two weeks REGINA GIORDANO MD May 17, 2025 07:11
[2025-05-17 08:30] VITALS: RESP 15; O2SAT 95
[2025-05-17 10:00] VITALS: BP 128/51; PULSE 77; RESP 19; TEMP 98.3; O2SAT 96
[2025-05-17] MEDS: potassium Cl 20 mEq SR tablet PO PRN (10:10)
[2025-05-17 10:11] VITALS: RESP 18
== END 2025-05-17 10:38 | disposition home or self-care (01) ==
LOC: PAS 05:27 → SUR 3N 07:13
PROVIDERS: ADMIT Specialist; ATTEND Specialist
DX: M19.012 Primary osteoarthritis, left shoulder (principal); M75.102 Unspecified rotator cuff tear or rupture of left shoulder, not specified as traumatic; M25.512 Pain in left shoulder; L40.50 Arthropathic psoriasis, unspecified; I10 Essential (primary) hypertension; E78.5 Hyperlipidemia, unspecified; F32.9 Major depressive disorder, single episode, unspecified; K21.9 Gastro-esophageal reflux disease without esophagitis; F41.9 Anxiety disorder, unspecified; E11.9 Type 2 diabetes mellitus without complications; R79.1 Abnormal coagulation profile; Z79.899 Other long term (current) drug therapy; Z98.890 Other specified postprocedural states
CPT/HCPCS: 23472; 29828; 71046; 73030; 76000; 80053; 81003; 82948; 83036; 85610; 85730; 96365; 96366; 97161; A4565; A4615; A4618; A7000; C1713; C1776; G0378; J0690; J2710; J3480; J3490; J7120; Q0163; 36415; 85025; 87081; 97110; 97535; A6258; A6449; A6455; J0131; J0735; J2250; J2405; J2704; J2795; J3010; J3373